=== PATIENT | female | born 1990 | race Caucasian/White ===

== ENCOUNTER → 2016-08-19 | Outpatient (CLI) | payer OTHER ==
--- NOTE | 2016-08-19 22:31 | MR ---
EXAMINATION TYPE: MR lumbar spine wo con DATE OF EXAM: 08/19/2016 COMPARISON: NONE HISTORY: Lumbago pain and stiffness CONTRAST: 0 mL intravenous . TECHNIQUE: Multiplanar, multisequence images of the lumbar spine were acquired. FINDINGS: Cord terminates L1-L2 level. L5-S1: There is a small central protrusion. No spinal canal stenosis. No foraminal stenosis. Mild facet hypertrophy is present.. L4-L5: No significant disc bulge or disc herniation. No spinal canal stenosis. No foraminal stenosi s. Facet hypertrophy is contributing to posterior lateral thecal sac compression.. L3-L4: No significant disc bulge or disc herniation. No spinal canal stenosis. No foraminal stenosi s. . L2-L3: No significant disc bulge or disc herniation. No spinal canal stenosis. No foraminal stenosi s. . L1-L2: No significant disc bulge or disc herniation. No spinal canal stenosis. No foraminal stenosi s. . T12-L1: No significant disc bulge or disc herniation. No spinal canal stenosis. No foraminal stenos is. Cord signal in the distal spinal cord appears normal. IMPRESSION: 1. Facet hypertrophy is mild posterior lateral thecal sac compression L4-5. 2. Mild central protrusion with mild anterior thecal sac compression L5-S1.
== END | disposition home or self-care (01) ==
LOC: RADMRIMAIN 21:43
PROVIDERS: ATTEND Psychiatry & Neurology Neurology
DX: M51.27 Other intervertebral disc displacement, lumbosacral region (principal); M48.8X6 Other specified spondylopathies, lumbar region; Z88.0 Allergy status to penicillin
CPT/HCPCS: 72148

== ENCOUNTER → 2017-04-27 | Outpatient (CLI) | payer OTHER ==
--- NOTE | 2017-04-27 15:48 | US ---
EXAMINATION TYPE: US pelvic complete DATE OF EXAM: 04/27/2017 COMPARISON: NONE CLINICAL HISTORY: 27-year-old female N92.8 Excessive And Frequent Regular Cycle. Heavy painful period s x 5 years, 3, para 3, history of tubal ligation TECHNIQUE: Transabdominal sonographic images of the pelvis were acquired. Date of LMP: 04/05/2017 FINDINGS: Uterus: Anteverted measuring 8.3 x 4.0 x 5.2 cm. Cervical nabothian cyst is demonstrated. Endometrial Stripe: 1.0 cm, within normal limits. Right Ovary: 2.9 x 2.4 x 1.7 cm, within normal limits. Left Ovary: 5.0 x 2.6 x 1.9 cm for a volume of 12.9 mL. There is follicular change with a dominant f ollicle/functional cyst measuring up to 1.9 cm. No evident adnexal abnormality. Small amount of cul-de-sac free fluid likely physiologic. IMPRESSION: 1. Follicular change in the left ovary with a 1.9 cm dominant follicle or functional cyst. 2. Small amount of cul-de-sac free fluid likely physiologic.
== END | disposition home or self-care (01) ==
LOC: RADUSWWP 13:41
PROVIDERS: ATTEND Family Medicine
DX: N92.0 Excessive and frequent menstruation with regular cycle (principal)
CPT/HCPCS: 76856

== ENCOUNTER → 2018-01-01 | Outpatient (CLI) | payer OTHER ==
--- NOTE | 2018-01-01 23:07 | MR ---
EXAMINATION TYPE: MR brain wo/w con DATE OF EXAM: 01/01/2018 COMPARISON: Prior MRI brain June 18, 2015. CT brain August 30, 2015. HISTORY: White matter changes, migraines headaches. TECHNIQUE: Multiplanar, multisequence images of the brain and brainstem is performed without and with IV contras t, utilizing 5 mL intravenous Gadavist gadolinium contrast is administered intravenously. Demyelinat ing disease protocol with additional Sagittal Flair sequence performed. FINDINGS: T2 Lesions Present : Yes Approximate Number of Lesions: Approximately 4 on current study Locations Identified : Scattered Size of Reference Lesion(s): 1. 6 x 2 x 4 mm left frontal lesion on axial image 17 and sagittal image 12 stable New punctate lesion identified sagittal image 19 right frontal lobe and sagittal image 22 right occip ital lobe Enhancing Lesion(s) Present: No T1 Hypointense Lesion(s) Present: No Change from Prior: 2 -3 additional lesions may be product of interval change in technique versus new lesions. Diffusion weighted images demonstrate no evidence of a recent infarct or other diffusion abnormality. There is no worrisome extra-axial fluid collection. The ventricular system and cisternal spaces ar e normal in size and appearance. The brain volume is age appropriate. Midline structures demonstrate normal morphology. The craniocervical junction appears within normal limits. Post contrast images demonstrate no abnormal enhancement. The dural venous sinuses appear pa tent. Stable tiny mucous retention cyst or polyp anterior right maxillary sinusitis image 7. Patchy f luid signal deep left mastoid air cells redemonstrated. Globes are intact bilaterally. IMPRESSION: Minimal nonspecific white matter changes with possible new 2-3 small lesions. No enhancin g lesions are seen.
== END ==
LOC: RADMRIMAIN 18:48
PROVIDERS: ATTEND Psychiatry & Neurology Neurology
DX: R90.89 Other abnormal findings on diagnostic imaging of central nervous system (principal)
CPT/HCPCS: 70553; A9585

== ENCOUNTER 2022-12-26 16:46 | Emergency (ER) | payer OTHER ==
[2022-12-26 17:15] VITALS: RESP 18; TEMP 98
--- NOTE | 2022-12-26 17:20 | ED ---
General Adult HPI - General Chief complaint: Extremity Injury, Lower Stated complaint: FALL, RIGHT FOOT INJURY Time Seen by Provider: 12/26/22 17:03 Source: patient, RN notes reviewed Mode of arrival: ambulatory Limitations: no limitations - History of Present Illness Initial comments: 32-year-old female presents to the emergency department chief complaint of right foot pain. She states that prior to arrival she was walking down some stairs when she tripped causing her to fall down 4 stairs. She states that she landed on the lateral aspect of her right foot and admits to pain in this area. She is unable to bear weight on the foot. She denies any other injury. She denies hitting her head, loss of consciousness, blood thinners. - Related Data Home Medications Medication Instructions Recorded Confirmed Albuterol Inhaler [Ventolin 1 - 2 puff INHALATION Q6HR PRN 07/30/14 08/30/15 Inhaler] Dextroamphetamine/Amphetamine 20 mg PO DAILY 07/30/14 08/30/15 [Adderall] Verapamil HCl [Verapamil ER] 180 mg PO DAILY 07/30/14 08/30/15 Butalb/Acetaminophen/Caffeine 1 - 2 cap PO Q4HR 03/04/15 08/30/15 [Fioricet 50-300-40 mg Capsule] SUMAtriptan succinate [Imitrex] 100 mg PO ONCE PRN 07/16/15 08/30/15 Previous Rx's Medication Instructions Recorded Naproxen [Naprosyn] 500 mg PO Q12HR #30 tab 07/31/14 HYDROcodone/APAP 5-325MG [[place] 5] 1 each PO Q4HR PRN #20 tab 03/04/15 Allergies Allergy/AdvReac Type Severity Reaction Status Date / Time folic acid Allergy Nausea & Verified 12/26/22 17:02 Vomiting Review of Systems ROS Statement: Those systems with pertinent positive or pertinent negative responses have been documented in the HPI. ROS Other: All systems not noted in ROS Statement are negative. Past Medical History Additional Past Medical History / Comment(s): MIGRAINES History of Any Multi-Drug Resistant Organisms: None Reported Additional Past Surgical History / Comment(s): LEFT EYE SURGERY Past Anesthesia/Blood Transfusion Reactions: No Reported Reaction Past Psychological History: ADD/ADHD, Anxiety Smoking Status: Current every day smoker Past Alcohol Use History: Occasional Past Drug Use History: None Reported - Past Family History Father Family Medical History: Cancer, Deep Vein Thrombosis (DVT), Pulmonary Embolus Additional Family Medical History / Comment(s): LEUKEMIA General Exam Limitations: no limitations General appearance: alert, in no apparent distress Head exam: Present: atraumatic, normocephalic, normal inspection ENT exam: Present: normal exam, mucous membranes moist Extremities exam: Present: normal inspection, full ROM, tenderness, normal capillary refill, other (DP and PT pulses 2+, ecchymosis to the plantar surface of right foot). Absent: pedal edema, joint swelling, calf tenderness Back exam: Present: normal inspection Neurological exam: Present: alert, oriented X3 Psychiatric exam: Present: normal affect, normal mood Skin exam: Present: warm, dry, intact, other (Ecchymosis to plantar surface of right lateral foot) Course Vital Signs 12/26/22 12/26/22 16:59 19:42 Temperature 98.0 F Pulse Rate 81 76 Respiratory 18 18 Rate Blood Pressure 133/78 125/82 O2 Sat by Pulse 99 98 Oximetry Procedures - Orthopedic Splinting/Casting Injury #1 Side: right Lower Extremity Injury Location: short leg Other Orthopedic Equipment: crutches Medical Decision Making - Medical Decision Making Was pt. sent in by a medical professional or institution (, PA, [employer], urgent care, hospital, or snf...) When possible be specific @ -No Did you speak to anyone other than the patient for history (EMS, parent, family, police, friend...)? What history was obtained from this source @ -No Did you review nursing and triage notes (agree or disagree)? Why? @ -I reviewed and agree with nursing and triage notes Were old charts reviewed (outside hosp., previous admission, EMS record, old EKG, old radiological studies, urgent care reports/EKG's, snf records)? Report findings @ -No old charts were reviewed Differential Diagnosis (chest pain, altered mental status, abdominal pain women, abdominal pain men, vaginal bleeding, weakness, fever, dyspnea, syncope, headache, dizziness, GI bleed, back pain, seizure, CVA, palpatations, mental health, musculoskeletal)? @ -Differential Musculoskeletal Muscular strain, contusion, ligament sprain, fracture, arthritis, septic arthritis, bursitis, cellulitis, muscle spasm, nerve compression, DVT, arterial occlusion, herpes zoster, electrolyte abnormality, tumor.... This is not meant to be in all inclusive list EKG interpreted by me (3pts min.). @ -None X-rays interpreted by me (1pt min.). @ -X-ray right foot shows no acute osseous abnormality CT interpreted by me (1pt min.). @ -None done U/S interpreted by me (1pt. min.). @ -None done What testing was considered but not performed or refused? (CT, X-rays, U/S, labs)? Why? @ -None What meds were considered but not given or refused? Why? @ -None Did you discuss the management of the patient with other professionals (professionals i.e. , PA, [employer], lab, RT, psych nurse, mental health social worker, line appliance assembler, teacher, ski patrol officer, family service caseworker)? Give summary @ -No Was smoking cessation discussed for >3mins.? @ -No Was critical care preformed (if so, how long)? @ -No Were there social determinants of health that impacted care today? How? (Homelessness, low income, unemployed, alcoholism, drug addiction, transportation, low edu. Level, literacy, decrease access to med. care, long term, rehab)? @ -No Was there de-escalation of care discussed even if they declined (Discuss DNR or withdrawal of care, Hospice)? DNR status @ -No What co-morbidities impacted this encounter? (DM, HTN, Smoking, COPD, CAD, Cancer, CVA, ARF, Chemo, Hep., AIDS, mental health diagnosis, sleep apnea, morbid obesity)? @ -None Was patient admitted / discharged? Hospital course, mention meds given and route, prescriptions, significant lab abnormalities, going to OR and other pertinent info. @ -Discharged. Patient presented emergency department chief complaint of right foot pain following falling down the stairs. She denies any other injuries. Denies hitting her head, loss of consciousness. She states that she feels she is unable to bear weight on her right foot because of the injury. X-ray obtained which shows no acute osseous abnormality. Discussed findings with patient. Patient was placed in a short-leg splint for possible occult fracture as she is unable to bear weight. She will follow-up with orthopedics. Patient understanding and agreeable with plan. Patient stable at time of discharge. Case discussed with Dr. Weeks. Undiagnosed new problem with uncertain prognosis? @ -No Drug Therapy requiring intensive monitoring for toxicity (Heparin, Nitro, Insulin, Cardizem)? @ -No Were any procedures done? @ -No Diagnosis/symptom? @ -Foot contusion Acute, or Chronic, or Acute on Chronic? @ -Acute Uncomplicated (without systemic symptoms) or Complicated (systemic symptoms)? @ -Uncomplicated Side effects of treatment? @ -No Exacerbation, Progression, or Severe Exacerbation? @ -No Poses a threat to life or bodily function? How? (Chest pain, [place], [place], pneumonia, PE, COPD, DKA, ARF, appy, cholecystitis, CVA, Diverticulitis, Homicidal, Suicidal, threat to staff... and all critical care pts) @ -No Disposition Clinical Impression: Right foot injury Disposition: HOME SELF-CARE Condition: Stable Instructions (If sedation given, give patient instructions): Foot Contusion (ED) Is patient prescribed a controlled substance at d/c from ED?: No Referrals: Viktor Watkins DO [Primary Care Provider] - 1-2 days Aleksandr Betts DO [Doctor of Osteopathic Medicine] - 1-2 days
--- NOTE | 2022-12-26 18:28 | XR ---
EXAMINATION TYPE: XR foot complete RT DATE OF EXAM: 12/26/2022 COMPARISON: None HISTORY: Fall, pain TECHNIQUE: 3 view right foot FINDINGS: Joint spaces are preserved. No acute fracture or dislocation is evident. Soft tissues are n ormal. Follow-up exam can be performed 7-10 days from acute trauma pain. IMPRESSION: 1. No acute osseous abnormality right foot
[2022-12-26 19:56] VITALS: BP 125/82; PULSE 76
== END 2022-12-26 19:43 | disposition home or self-care (01) ==
LOC: EC 16:46
DX: S90.31XA Contusion of right foot, initial encounter (principal); F90.9 Attention-deficit hyperactivity disorder, unspecified type; F41.9 Anxiety disorder, unspecified; F17.200 Nicotine dependence, unspecified, uncomplicated; Z88.8 Allergy status to other drugs, medicaments and biological substances; W01.0XXA Fall on same level from slipping, tripping and stumbling without subsequent striking against object, initial encounter
CPT/HCPCS: 29515; 99283